=== PATIENT | female | born 1995 | race Caucasian/White ===

== ENCOUNTER 2019-02-10 13:10 | Observation (INO) | payer MEDICAID ==
[~2019-02-10] VITALS: Ht 160 cm; Wt 62.6 kg
== END 2019-02-10 16:10 | disposition home or self-care (01) ==
LOC: 8 EST LDRP 13:10
PROVIDERS: ADMIT Specialist; ATTEND Obstetrics & Gynecology
DX: O26.893 Other specified pregnancy related conditions, third trimester (principal); R10.30 Lower abdominal pain, unspecified; Z3A.29 29 weeks gestation of pregnancy
CPT/HCPCS: 76815; 76818; 99281; G0378